=== PATIENT | male | born 1975 | race American Indian/Alaskan Native ===

== ENCOUNTER 2018-11-30 18:18 | Emergency (ER) | payer OTHER ==
[2018-11-30 18:45] VITALS: BP 135/84
--- NOTE | 2018-11-30 18:48 | Emergency Department Report ---
Blank Doc - Documentation Documentation: This is a 43 y.o. male that presents to ED with acute on chronic low back pain. Pain worse with movement. Taking NSAIDs w/o improvement of symptoms. History of bulging disc. Recently moved here from [place]. Ordered xr of L-spine. Fast track for further evaluation.
--- NOTE | 2018-11-30 20:19 | XRay Report ---
PROCEDURE: LUMBAR SPINE, 2 VIEWS TECHNIQUE: Lumbar spine radiographs, frontal and lateral views. CPT 87926 HISTORY: Back pain COMPARISONS: None . FINDINGS: Alignment: Normal . Vertebral body heights/Disk spaces: Normal . Fracture(s): None . Facets: Normal . Bone mineralization: Normal . IMPRESSION: Normal Examination . This document is electronically signed by Luis Eduardo Gaviria MD., November 30 2018 08:17:00 PM ET
--- NOTE | 2018-11-30 21:44 | Emergency Department Report ---
ED Back Pain/Injury HPI - General Chief Complaint: Back Pain/Injury Stated Complaint: BACK PAIN Time Seen by Provider: 11/30/18 18:44 Source: patient Limitations: No Limitations - History of Present Illness Initial Comments: Pt is a 43 yo male who presents to the ED with c/o lower back pain. The patient states he has had chronic lower back pain for 20 years which occasionally flares up. He states this feels like his prior episodes. 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 He denies any numbness, weakness, tingling. He denies any new injury or fall. He states he has never seen an orthopedic or pain doctor. Pt has not tried any treatments at home to relieve his pain. MD Complaint: back pain Similar Symptoms Previously: Yes Radiation: none Severity: moderate Severity scale (0 -10): 5 Quality: sharp, aching Consistency: intermittent Improves With: other (rest) Worsens With: other (movements ) Associated Symptoms: denies other symptoms - Related Data Previous Rx's Medication Instructions Recorded Last Taken Type Cyclobenzaprine HCl [Flexeril 5 MG 5 mg PO HS PRN #5 tablet 11/30/18 Unknown Rx TAB] RX: Ibuprofen 800 mg PO Q6HR PRN #20 tablet 11/30/18 Unknown Rx Allergies Allergy/AdvReac Type Severity Reaction Status Date / Time No Known Allergies Allergy Verified 11/30/18 22:30 ED Review of Systems ROS: Stated complaint: BACK PAIN Other details as noted in HPI Comment: All other systems reviewed and negative ED Past Medical Hx - Past Medical History Previous Medical History?: No - Surgical History Past Surgical History?: No - Social History Smoking Status: Current Every Day Smoker Substance Use Type: Alcohol, Marijuana - Medications Home Medications: Home Medications Medication Instructions Recorded Confirmed Last Taken Type Cyclobenzaprine HCl [Flexeril 5 MG 5 mg PO HS PRN #5 tablet 11/30/18 Unknown Rx TAB] RX: Ibuprofen 800 mg PO Q6HR PRN #20 tablet 11/30/18 Unknown Rx ED Physical Exam - General Limitations: No Limitations General appearance: alert, in no apparent distress - Head Head exam: Present: atraumatic, normocephalic - Eye Eye exam: Present: normal appearance - ENT ENT exam: Present: mucous membranes moist - Neck Neck exam: Present: normal inspection, full ROM - Respiratory Respiratory exam: Absent: respiratory distress - Cardiovascular Cardiovascular Exam: Present: regular rate - GI/Abdominal GI/Abdominal exam: Present: soft. Absent: distended, tenderness - Back Exam Back exam: Present: normal inspection, full ROM, paraspinal tenderness (bilateral lumbar paraspinal TTP ) - Neurological Exam Neurological exam: Present: alert, oriented X3, normal gait, reflexes normal. Absent: motor sensory deficit - Psychiatric Psychiatric exam: Present: normal affect, normal mood - Skin Skin exam: Present: warm, dry, intact ED Course Vital Signs 11/30/18 11/30/18 18:43 22:20 Temperature 97.8 F Pulse Rate 75 79 Respiratory 16 16 Rate Blood Pressure 135/84 O2 Sat by Pulse 98 98 Oximetry ED Medical Decision Making - Medical Decision Making Pt is a 43 yo male with a hx of chronic back pain for the last 20 years. He states this feels the same as his previous flares. He denies any new injury or fall. He denies any numbness, weakness, tingling, or radiation of the pain. XR of the lumbar spine is normal. Will give pt ibuprofen and small amount of flexeril to take at night. Advised pt not to drive on flexeril. Pt will need to follow up with PCP in the next 2 days. Pt can follow up with saige Singleton if still continuing to have issues. Advised pt to return to the ED if new or worsening sx. Critical care attestation.: If time is entered above; I have spent that time in minutes in the direct care of this critically ill patient, excluding procedure time. ED Disposition Clinical Impression: Chronic back pain Qualifiers: Back pain location: low back pain Back pain laterality: bilateral Sciatica presence: without sciatica Qualified Code(s): M54.5 - Low back pain Disposition: - TO HOME OR SELFCARE Is pt being admited?: No Does the pt Need Aspirin: No Condition: Stable Instructions: Chronic Back Pain (ED) Additional Instructions: Follow up with saige Singleton. Advised to return to the ED if new/worsening sx. Prescriptions: Cyclobenzaprine HCl [Flexeril 5 MG TAB] 5 mg PO HS PRN #5 tablet PRN Reason: Muscle Spasm RX: Ibuprofen 800 mg PO Q6HR PRN #20 tablet PRN Reason: Pain, Mild (1-3) [facility] [Primary Care Provider] - 3-5 Days Time of Disposition: 22:09 Print Language: PERSIAN
[2018-11-30] MEDS ORDERED: IBUPROFEN PO ONE (22:09)
[2018-11-30] MEDS ORDERED: FLEXERIL ONE (22:09)
[2018-11-30] MEDS ORDERED: FLEXERIL PO ONE (22:09)
[2018-11-30] MEDS ORDERED: IBUPROFEN ONE (22:09)
== END 2018-11-30 22:20 | disposition home or self-care (01) ==
LOC: ED 18:18
DX: M54.5 Low back pain (principal); F17.200 Nicotine dependence, unspecified, uncomplicated
CPT/HCPCS: 72100; 99283